=== PATIENT | female | born 1975 | race Caucasian/White ===

== ENCOUNTER 2019-10-15 11:30 | Outpatient (RCR) | payer OTHER, SELFPAY ==
--- NOTE | 2019-08-01 15:07 | OTOPEVAL ---
OT INITIAL EVALUATION REPORT 08/01/19 Thank you for referring this patient to [facility]. Skilled OT indicated 1x/week for 4 weeks. Will re-assess in 4 weeks and send a progress report at that time. Please review, sign, date and return this plan of care YOSELYN. I agree with and certify that the following plan of care is medically necessary. Referring Physician Date Attending Provider: Sonido Gregory MD *OT Outpatient Evaluation Document 08/01/19 13:43 LIBORIO (Rec: 08/01/19 15:07 LIBORIO [email or web address]) Therapy Assessment Status Assessment Status Evaluation Evaluation Information Problem Diagnosis L thumb UCL rupture Onset Aug 2018 Additional Evaluation Detail Patient underwent UCL repair in December 2018. Subjective Information Pt reports having a cortizone Query Text:As Reported By Patient/ shot May 2019 with no relief Family of her pain. Her biggest complaint is the constant pain and stiffness despite completing her ROM exercises regularly. Reports difficulties with gripping and pinching to pull pants up, holding a water bottle, holding weights at the gym, and almost everything I try to do . Prior Level of Function Activity Level (Last 3 Months) Hand Dominance Right Pain Assessment Timing of Pain Assessment Timing of Pain Assessment Assessment Pain Scale Pain Scale Used Numeric (1 - 10) Self Report Pain Assessment Left Thumb(s) Reported Pain Level 4 Pain Description Aching Pain Frequency Continuous Current Pain Intensity 4 Lowest Pain Intensity 4 Greatest Pain Intensity 7 Pain Aggravating Factors ADL's,Exercise/Activity, Lifting Pain Relief Interventions Used By Exercise,Medication Patient Pain Score Pain Score 4: Self Report Upper Extremity Range of Motion Thumb Range of Motion Left Thumb MCP Flexion - Active 30 Thumb IP Flexion - Active 50 Opposition to 5th Digit Base 1 Thumb Range of Motion Comments Thumb gross extension is WNL. Splint/Brace/Cast Assessment Splint and Bracing Assessment Left Thumb Fabrication Clinician Made Splint/Brace/Cast Comments Static progressive thumb IP flexion Reason For Splint/Brace/Cast Increase Range of Motion Schedule Comments Begin 10 min wear time, 3x/day. To incre
--- NOTE | 2019-08-11 13:26 | PCOTNOTE ---
Patient called and cancelled OT tx today.
--- NOTE | 2019-09-10 14:34 | OTOPEVAL ---
OCCUPATIONAL THERAPY RE-EVALUATION AND PROGRESS REPORT 09/10/2019 Thank you for referring this patient to [facility]. As noted below, continued skilled OT is indicated 1x/week for 4 weeks. Please review, sign, date and return this plan of care YOSELYN. I agree with and certify that the following plan of care is medically necessary. Referring Physician Date Attending Provider: Sonido Gregory MD *OT Outpatient Re-Evaluation Assessment Status Re-evaluation Evaluation Information Problem Diagnosis L thumb pain s/p UCL rupture and repair Onset Aug 2018 Additional Evaluation Detail Cesilia has been participating in outpatient hand therapy for left thumb IP stiffness and pain. Therapy has been focusing on pain management through the use of modalities and static progressive splinting for IP ROM. Subjective Information Pt reports improvement since Query Text:As Reported By Patient/ SOC. She states she has less Family pain, improved ROM, and decreased feelings of stiffness. Functionally this has improved her ability to hold a dumbbell, pinching and pulling up her pants, and improved skein bleacher to open a jar. Pain Assessment Timing of Pain Assessment Timing of Pain Assessment Re-assessment Pain Scale Pain Scale Used Numeric (1 - 10) Self Report Pain Assessment Left Thumb(s) Reported Pain Level 2 Pain Description Aching Pain Frequency Continuous Current Pain Intensity 2 Lowest Pain Intensity 2 Greatest Pain Intensity 4 Additional Pain Comments Continuous pain reduced from 4/10 to 2/10. Pain Score Pain Score 2: Self Report Upper Extremity Range of Motion Thumb Range of Motion Left Thumb MCP Flexion - Active 35 Thumb IP Flexion - Active 53 Opposition to 5th Digit Base 1 cm Thumb Range of Motion Comments MCP improved from 30*. IP improved from 50*. Hand Complaint Clerk/Pinch Strength Assessment Hand Left Complaint Clerk Strength (lbs) 49.33 Lateral Pinch Strength (lbs) 6.66 Palmar Pinch Strength (lbs) 2 Hand Complaint Clerk/Pinch Strength Comments Increase in pain (4/10) with palmar pinching. Right Complaint Clerk Strength (lbs) 61 Lateral Pinch Strength (lbs) 8.33 Palmar Pinch Strength (lbs) 12 Splint/Brace/Cast Assessment
--- NOTE | 2019-10-09 13:41 | PCOTNOTE ---
Patient did not show or call to cancel OT re-evaluation today. Left patient a message stating that tomorrow would be our last day to get her in her a re-eval per her POC.
--- NOTE | 2019-10-15 12:49 | OTOPEVAL ---
OT RE-EVALUATION AND D/C NOTE 10/15/2019 Thank you for referring this patient to [facility]. As described below, Cesilia has made progress toward functional use and reduced pain in the left thumb. She is currently independent with all home programs and static progressive splint schedule. D/C today. Please review, sign, date and return this discharge YOSELYN. I agree with and certify that the following plan of care is medically necessary. Referring Physician Date Referring Provider: Sonido Gregory MD *OT Outpatient Evaluation Start: 08/01/19 13:43 Therapy Assessment Status Assessment Status Assessment Status Re-evaluation Evaluation Information Problem Diagnosis L thumb pain s/p UCL rupture and repair Onset Aug 2018 Additional Evaluation Detail Cesilia has been participating in outpatient hand therapy for left thumb IP stiffness and pain. Therapy has been focusing on pain management through the use of modalities and static progressive splinting for IP ROM. Subjective Information Pt reports improvement since Query Text:As Reported By Patient/ SOC. She states she has less Family pain, improved ROM, and decreased feelings of stiffness. Functionally this has improved her ability to hold a dumbbell, pinching and pulling up her pants, and improved client resolution specialist to open a jar. Overall she has more comfort and confidence in her ability to use the left hand now and is able to incorporate the left hand and thumb into everyday activities vs. compensating and avoiding use due to pain. Pain Assessment Timing of Pain Assessment Timing of Pain Assessment Re-assessment Pain Scale Pain Scale Used Numeric (1 - 10) Self Report Pain Assessment Left Thumb(s) Reported Pain Level 2 Pain Description Aching Current Pain Intensity 2 Lowest Pain Intensity 2 Greatest Pain Intensity 6 Pain Score Pain Score 2: Self Report Upper Extremity Range of Motion Thumb Range of Motion Left Thumb MCP Flexion - Active 32 Thumb IP Flexion - Active 55 Opposition to 5th Digit Base 1 Thumb Range of Motion Comments MCP improved from 30*.
== END 2019-10-15 14:14 | disposition home or self-care (01) ==
LOC: ANHOT 11:30
PROVIDERS: PCP Internal Medicine
DX: S53.32XD Traumatic rupture of left ulnar collateral ligament, subsequent encounter (principal)
CPT/HCPCS: 97018; 97035; 97110; 97140; 97165; L3913

== ENCOUNTER → 2020-04-28 13:48 | Outpatient (CLI) | payer OTHER, SELFPAY ==
--- NOTE | ~2020-04-28 | MM_ITS ---
EXAMINATION: MM screening maida BI w sheila HISTORY: Screening mammogram TECHNIQUE: Craniocaudal and mediolateral oblique 3-D tomosynthesis images were obtained and synthetic 2-D images were generated. CAD analysis was submitted and interpreted. COMPARISON: 04/02/2019, 03/11/2018, 03/09/2017 bilateral digital screening mammogram examinations BREAST PARENCHYMAL COMPOSITION: There are scattered areas of fibroglandular density. FINDINGS: There is no evidence of suspicious mass, calcification, or architectural distortion to sugg est malignancy in either breast. There has been no suspicious interval change. IMPRESSION: 1. No mammographic evidence of malignancy. 2. Recommend routine screening mammography in one year. BI-RADS Category 1: Negative Reviewed, dictated and finalized at location A.
== END ==
PROVIDERS: PCP Internal Medicine; Visit Provider Obstetrics & Gynecology
DX: Z12.31 Encounter for screening mammogram for malignant neoplasm of breast (principal)
CPT/HCPCS: 77063; 77067

== ENCOUNTER → 2021-05-19 11:15 | Outpatient (CLI) | payer OTHER, SELFPAY ==
--- NOTE | ~2021-05-19 | MM_ITS ---
EXAMINATION: MM screening [facility] BI w sheila HISTORY: Screening mammogram TECHNIQUE: Craniocaudal and mediolateral oblique 3-D tomosynthesis images were obtained and synthetic 2-D images were generated. CAD analysis was submitted and interpreted. COMPARISON: 04/28/2020, 04/02/2019, 03/11/2018 BREAST PARENCHYMAL COMPOSITION: There are scattered areas of fibroglandular density. FINDINGS: There is no evidence of suspicious mass, calcification, or architectural distortion to sugg est malignancy in either breast. There has been no suspicious interval change. IMPRESSION: 1. No mammographic evidence of malignancy. 2. Recommend routine screening mammography in one year. BI-RADS Category 1: Negative Reviewed, dictated and finalized at location A.
== END ==
PROVIDERS: Visit Provider Nurse Practitioner Obstetrics & Gynecology
DX: Z12.31 Encounter for screening mammogram for malignant neoplasm of breast (principal)
CPT/HCPCS: 77063; 77067

== ENCOUNTER 2022-02-21 00:03 | Day surgery (SDC) | payer OTHER, SELFPAY ==
[2022-02-07 13:14] VITALS: BMI 21.9
--- NOTE | 2022-02-21 07:26 | WPDANESEPPF ---
Anes - Initial Pre Proc Eval Procedure: Operation Date: 02/21/22 09:30 Proposed Procedures p Screening Colonoscopy - Mert Morales MD Date/Time: 02/21/22 07:26 Surgeon: Mert Morales MD Pre Op Diagnosis: neoplasm screening Patient Data Age: 46 Gender: F Height: 1.57 m Weight: 54.5 kg Allergies Allergy/AdvReac Type Severity Reaction Status Date / Time No Known Allergies Allergy Verified 02/21/22 08:12 Home Medications Medication Instructions Recorded Confirmed Type sodium sul 1.479 gram-potas ch See Rx Instructions PO PER PKG DIR 01/02/22 02/07/22 Rx 0.188 gram-magnes sul 0.225 gram #24 tabs tablet (Sutab) amlodipine 5 mg tablet 5 mg PO DAILY 02/07/22 02/07/22 History lisinopril 10 mg tablet 10 mg PO DAILY 02/07/22 02/07/22 History medroxyprogesterone 2.5 mg tablet 2.5 mg PO DAILY 02/07/22 02/07/22 History valacyclovir 500 mg tablet 500 mg PO DAILY 02/07/22 02/07/22 History Patient hx anesthesia problems: none Family hx anesthesia problems: none Results Review: All pre-operative results and documents have been reviewed as part of the pre-operative evaluation. [facility] Past Medical History Medical History (Updated 02/21/22 @ 07:27 by Edouard Pena MD) Endometriosis HTN (hypertension) Migraine PUD (peptic ulcer disease) Family History Family History Other Family history of malignant neoplasm Social History Social History Smoking status: Never smoker Alcohol intake: never Substance use: never Substance use type: does not use Living arrangements: with family Gender identity (if verbalized by the patient): Female Spiritual care concerns: No Anes - Eval Final PreProcedure Day of Procedure 02/21/22 07:26 Patient weight: normal Heart: regular rate and rhythm Lungs: clear to auscultation and normal air movement Airway: Mallampati scale class II Neurological: alert and oriented Last oral intake: >/= 8 hours ASA classification: II Emergent: no Anesthetic plan: proceed Anesthesia type and monitoring: general GIVS Results Review: All pre-operative results and documents have been reviewed as part of the pre-operative evaluation. Informed Consent: The patient's anesthetic plan and its attendant risks and benefits were discussed with the patient/family/POA. Questions were solicited and answers provided to the satisfaction of the patient/family/POA.
[2022-02-21 08:13] VITALS: BP 142/83; PULSE 82; RESP 16; TEMP 37.2; O2SAT 100
[2022-02-21] MEDS: LACTATED RINGERS 1,000 ML 150 ML IV CONT (08:24)
--- NOTE | 2022-02-21 08:54 | PM.IMHP ---
H&P: HPI History of Present Illness Date/Time: 02/21/22 08:54 Chief Complaint: Neoplasia screening. Narrative: This is a 46-year-old white female patient presents for neoplasia screening colonoscopy. Patient reports that her current weight appetite bowel movements are normal. She denies abdominal pain. She has had no bleeding. Family history is significant her father had colon cancer. Patient presents today for neoplasia screening. Review of Systems Review of Systems: Review of systems noncontributory. [facility] Past Medical History Medical History (Updated 02/21/22 @ 09:07 by Mert Morales MD) Endometriosis HTN (hypertension) Migraine PUD (peptic ulcer disease) Family History Family History Other Family history of malignant neoplasm Social History Social History Smoking status: Never smoker Alcohol intake: never Substance use: never Substance use type: does not use Living arrangements: with family Gender identity (if verbalized by the patient): Female Spiritual care concerns: No Meds Home Medications and Allergies Home Medications Medication Instructions Recorded Confirmed Type sodium sul 1.479 gram-potas ch See Rx Instructions PO PER PKG DIR 01/02/22 02/07/22 Rx 0.188 gram-magnes sul 0.225 gram #24 tabs tablet (Sutab) amlodipine 5 mg tablet 5 mg PO DAILY 02/07/22 02/07/22 History lisinopril 10 mg tablet 10 mg PO DAILY 02/07/22 02/07/22 History medroxyprogesterone 2.5 mg tablet 2.5 mg PO DAILY 02/07/22 02/07/22 History valacyclovir 500 mg tablet 500 mg PO DAILY 02/07/22 02/07/22 History Allergies Allergy/AdvReac Type Severity Reaction Status Date / Time No Known Allergies Allergy Verified 02/21/22 08:12 Vital Signs Vital Signs - 24 hr 02/21/22 08:13 Temperature 98.9 F Pulse Rate 82 Respiratory Rate 16 Blood Pressure 142/83 H Pulse Oximetry 100 Oxygen Delivery Room Air Exam Narrative: Physical exam reveals patient to be alert. Vital signs stable. HEENT exam is unremarkable. Patient is anicteric. Lungs are clear to auscultation and percussion. Heart is without murmur or extra sounds. Abdominal exam bowel sounds are present soft nontender with no organomegaly. Digital external rectal exam is normal. Assessment and Plan Assessment and plan (1) Family history of colon cancer in father: Code(s): Z80.0 - Family history of malignant neoplasm of digestive organs Status: Acute Assessment and Plan: Patient has a family history of colon cancer in both father and grandparent. Plan is for surveillance colonoscopy now and consider this at 5 year intervals in the future.
[2022-02-21 09:19] VITALS: BP 142/81; PULSE 100; RESP 25; O2SAT 100
[2022-02-21 09:29] VITALS: BP 127/72; PULSE 83; RESP 20; O2SAT 100
[2022-02-21 09:39] VITALS: BP 134/81; PULSE 79; RESP 19; O2SAT 100
== END 2022-02-21 09:49 | disposition home or self-care (01) ==
PROVIDERS: PCP Internal Medicine; Referring Provider Nurse Practitioner Obstetrics & Gynecology; Visit Provider Internal Medicine Gastroenterology
PROC: 0DJD8ZZ Inspection of Lower Intestinal Tract, Via Natural or Artificial Opening Endoscopic (ICD-10-PCS; CPT 45378; principal; 2022-02-21 09:30)
DX: Z12.11 Encounter for screening for malignant neoplasm of colon (principal); K57.30 Diverticulosis of large intestine without perforation or abscess without bleeding; K64.8 Other hemorrhoids; I10 Essential (primary) hypertension; Z80.0 Family history of malignant neoplasm of digestive organs
CPT/HCPCS: 45378; J2704; J7120

== ENCOUNTER → 2022-08-22 12:35 | Outpatient (CLI) | payer OTHER, SELFPAY ==
--- NOTE | ~2022-08-22 | MM_ITS ---
EXAMINATION: MM screening maida BI w sheila HISTORY: Screening mammogram TECHNIQUE: Craniocaudal and mediolateral oblique 3-D tomosynthesis images were obtained and synthetic 2-D images were generated. CAD analysis was submitted and interpreted. COMPARISON: 05/19/2021, 04/28/2020, 04/02/2019 bilateral screening mammogram examinations BREAST PARENCHYMAL COMPOSITION: There are scattered areas of fibroglandular density. FINDINGS: There is no evidence of suspicious mass, calcification, or architectural distortion to sugg est malignancy in either breast. There has been no suspicious interval change. IMPRESSION: 1. No mammographic evidence of malignancy. 2. Recommend routine screening mammography in one year. BI-RADS Category 1: Negative Reviewed, dictated and finalized at location A. ING WORKER
== END ==
PROVIDERS: PCP Nurse Practitioner Obstetrics & Gynecology; Visit Provider Nurse Practitioner Obstetrics & Gynecology
DX: Z12.31 Encounter for screening mammogram for malignant neoplasm of breast (principal)
CPT/HCPCS: 77063; 77067

== ENCOUNTER 2022-11-02 12:10 | Observation (INO) | payer OTHER, SELFPAY ==
--- NOTE | ~2022-11-02 | US_ITS ---
US abdomen limited DATE: 11/02/2022 15:24 INDICATION: Acute cholecystitis due to gallstones TECHNIQUE: Real-time imaging of liver, pancreas, gallbladder COMPARISON: None FINDINGS: There are multiple stones in the dependent aspect of the gallbladder. Gallbladder wall asia ures up to 3 mm thickness. Positive sonographic Garcia's sign. No hepatic or pancreatic space-occupying mass lesion is evident. Normal hepatopedal portal venous luann w direction. The common bile duct measures 4.7 mm, within normal limits. IMPRESSION: Cholelithiasis Mild gallbladder wall thickening and positive sonographic Garcia sign, suggesting acute cholecystitis Reviewed, dictated and finalized at Location A. Reviewed, dictated and finalized at location A. IMPRESSION: Cholelithiasis Mild gallbladder wall thickening and positive sonographic Garcia sign, suggesti ng acute cholecystitis
[2022-11-02 11:57] VITALS: BP 142/74; PULSE 78; RESP 16; TEMP 36.2; O2SAT 97
--- NOTE | 2022-11-02 12:04 | PM.IMHP ---
H&P: HPI History of Present Illness Date/Time: 11/02/22 12:04 Chief Complaint: Acute cholecystitis secondary to cholelithiasis Narrative: Ms. Grimaldo presents to the office today with her for evaluation.? They were recently vacationing in [place], [place] when she developed severed RUQ abdominal pain that radiated to her back as well as nausea.? Pain began after eating fried food.? She presented to a ER in [place]? where a CT abd/pel with IV contrast was done and showed cholelithiasis including a gallstone within the neck of the gallbladder.? No pericholecystic inflammation or fluid to suggest acute cholecystitis.? Surgery was recommended to be done while she was there, but patient deferred and wished to come home to be evaluated discuss surgery. ? Was told she should directly to ER once she returns, but wanted to try to wait until her appt today. Drove through the night and returned home at 2:30am today.? Was very uncomfortable during the entire 15-hour drive.? Subjectively felt like she had a fever.? She was given script for oxycodone while in the ER which she has been taking oxycodone with only some relief pain.? Still experiences persistent RUQ discomfort and nausea and feels like she's going to pass out.? Denies dark urine and is trying to drink plenty of fluids, but still feels weak and dizzy. ing after eating fried and spicy foods.? Over the last few months, admits to experiencing some nausea, diarrhea, and bloating. acute cholecsyt due to gallstones - floor bed without telemetry.? 23-hours obs. PFSH Medical History?(Updated 11/02/22 @ 11:24 by Claudia Benitez) Endometriosis HTN (hypertension) Migraine PUD (peptic ulcer disease) Rupture of ulnar collateral ligament of left thumb Rupture of ulnar collateral ligament of left thumb Sprain of anterior talofibular ligament of left ankle Surgical History?(Updated 11/02/22 @ 10:36 by Adele Santos) Hx of thumb surgery Family History? Other Carcinoma of colon Diabetes mellitus Family history of malignant neoplasm Hypertension Social History? Smoking status:? Never smoker Alcohol intake:? never Substance use:? never Substance use type:? does not use Lack of Transportation:? No Lack of Food:? Never True Current Housing:? I Have Housing Concerned About Future Housing:? No Difficulty Paying Gas/Electric Bills:? No Difficulty Paying for Meds:? No Currently Unemployed:? No Difficulty w/ Childcare or Family Care:? No Living arrangements:? with family Occupation/Education:? occupation Gender identity (if verbalized by the patient):? Female Sexual Orientation (if Verbalized by the Patient):? Straight or Heterosexual Spiritual care concerns:? No Intake Vital Signs ? 11/02/2309:39 Height 1.57 m Height (Inches) 62 Weight 59.874 kg Weight (Lbs) 132 lbs., 0 oz. BMI 24.1 BP 122/84 Blood Pressure Location Rt brachial Position Sitting Respiration 14 Pulse 79 Pulse Source Monitor Temp 36.4 C Temp Source Tympanic Visit Reasons:?Gallbladder problems Allergies/Adverse Reactions propranolol Adverse Reaction (Unknown, Verified 11/02/22 10:35) Fatiguedamoviq Adverse Reaction (Unknown, Uncoded 11/02/22 10:35) Headache Preferred laboratory: [facility] Pre-Planning preparation?: Yes Review of Systems Const All systems reviewed & are unremarkable except as noted in HPI and below Reports fatigue, Reports headache(s) and Reports weight gain Eyes Reports no additional complaints, Denies loss of peripheral vision and Denies loss of vision ENT Reports dizziness and Reports headache(s) Card Denies syncope, Denies irregular heart rhythm, Denies claudication, Denies lightheadedness, Denies palpitations, Denies dyspnea and Denies dyspnea on exertion Resp Denies pain with cough, Denies dyspnea, Denies dyspnea on exertion and Denies wheezing GI Reports abdominal pain, R
[2022-11-02] MEDS: DEXTROSE 5%/0.9% SOD CHL 1,000 ML 130 ML IV CONT ×2 (12:42→22:03)
[2022-11-02] MEDS: ONDANSETRON INJ 4 MG/2 ML VIAL IV PUSH ×2 (12:43→14:51)
--- NOTE | 2022-11-02 12:52 | ADMGEN ---
This patient, Cesilia Grimaldo, was admitted to [facility] Room 306-01. Patient/family oriented to hospital policies and general routines including ID bracelet, bed and alarms, visiting hours, pain management, procedures, bathroom and other care routines, personal items, smoking policy, room service/diet, and visiting hours. Information on how to activate the Rapid Response Team has been discussed. Patient/Family are encouraged to report perceived risks to care and to ask questions if they do not understand what they are told or what they should do.
[2022-11-02 13:00] LABS: Basophils Absolute Auto 0.1 K/mm3 (0.0-0.1); Basophils Percent Auto 0.7 % (0.2-1.2); Eosinophils Absolute Auto 0.1 K/mm3 (0-0.3); Eosinophils Percent Auto 1.2 % (0-4.4); Hematocrit 40.2 % (37.0-47.0); Hemoglobin 13.1 g/dL (12.0-15.0); Immature Granulocyte Absolute 0.02 K/mm3 (0.00-0.031); Immature Granulocyte Percent A 0.2 % (0-0.5); Lymphocytes Absolute Auto 1.74 K/mm3 (0.9-3.2); Lymphocytes Percent Auto 19.2 % (18.3-44.2); Mean Corpuscular HGB Conc 32.6 g/dl (32-36); Mean Corpuscular Hemoglobin 30.1 pg (26-34); Mean Corpuscular Volume 92.4 fl (80-100); Mean Platelet Volume 9.7 fl (7.4-10.4); Monocytes Absolute Auto 0.5 K/mm3 (0.1-0.6); Monocytes Percent Auto 5.8 % (2.6-8.5); Neutrophils Absolute Auto 6.6 K/mm3 (1.3-6.7); Neutrophils Percent Auto 72.9 % (45.5-73.1); Platelet Count Result 231 k/mm3 (150-375); Red Blood Count 4.35 M/mm3 (4.2-5.4); Red Cell Distribution Width 12.7 % (11.5-14.5); White Blood Count 9.1 K/mm3 (4.5-10.0)
[2022-11-02 13:37] LABS: Alanine Aminotransferase 48 U/L (6-35); Albumin Level 4.1 g/dL (3.5-5.1); Alkaline Phosphatase 97 U/L (38-126); Anion Gap 0 mmol/L (8-16); Aspartate Amino Transferase 33 U/L (14-36); Bilirubin,Total 0.5 mg/dL (0.2-1.3); Blood Urea Nitrogen 11 mg/dL (7-17); Calcium 8.4 mg/dL (8.4-10.2); Carbon Dioxide 29 mmol/L (22-30); Chloride 108 mmol/L (98-107); Estimated Glomerular Filt Rate > 60; Glucose 98 mg/dL (65-110); Lipase 104 U/L (23-300); Potassium 4.1 mmol/L (3.4-5.0); Sodium 137 mmol/L (137-145)
[2022-11-02] MEDS: MORPHINE SULFATE (*CRX) 2 MG/ML INJ 4 MG IV PUSH (14:19)
[2022-11-02] MEDS: PANTOPRAZOLE SODIUM IV 40 MG VIAL IV PUSH (14:19)
[2022-11-02 15:46] VITALS: BMI 23.8
[2022-11-02] MEDS: PROMETHAZINE HCL 25 MG/ML AMPUL 12.5 MG IV PUSH (16:56)
[2022-11-02] MEDS: PIPERACILLN/TAZ 3.375GM/NS50ML 3.375 GM/50 ML BAG IVPB ×2 (17:58→22:03)
[2022-11-02 23:28] VITALS: BP 131/78; PULSE 77; RESP 18; TEMP 36.8; O2SAT 98
[2022-11-03] VITALS (9 sets, daily range): BP systolic 114–158; BP diastolic 60–90; PULSE 67–89; RESP 16–26; TEMP 36.1–37.2; O2SAT 93–100
[2022-11-03] MEDS: PIPERACILLN/TAZ 3.375GM/NS50ML 3.375 GM/50 ML BAG IVPB ×2 (05:08→10:05)
[2022-11-03] MEDS: DEXTROSE 5%/0.9% SOD CHL 1,000 ML 130 ML IV CONT (05:09)
[2022-11-03 07:41] LABS: Basophils Percent Auto 0.7 % (0.2-1.2); Eosinophils Absolute Auto 0.2 K/mm3 (0-0.3); Eosinophils Percent Auto 3.1 % (0-4.4); Hematocrit 35.8 % (37.0-47.0); Hemoglobin 11.5 g/dL (12.0-15.0); Immature Granulocyte Absolute 0.01 K/mm3 (0.00-0.031); Immature Granulocyte Percent A 0.2 % (0-0.5); Lymphocytes Absolute Auto 1.61 K/mm3 (0.9-3.2); Lymphocytes Percent Auto 29.4 % (18.3-44.2); Mean Corpuscular HGB Conc 32.1 g/dl (32-36); Mean Corpuscular Hemoglobin 30.3 pg (26-34); Mean Corpuscular Volume 94.2 fl (80-100); Mean Platelet Volume 9.7 fl (7.4-10.4); Monocytes Absolute Auto 0.5 K/mm3 (0.1-0.6); Monocytes Percent Auto 8.4 % (2.6-8.5); Neutrophils Absolute Auto 3.2 K/mm3 (1.3-6.7); Neutrophils Percent Auto 58.2 % (45.5-73.1); Platelet Count Result 191 k/mm3 (150-375); Red Cell Distribution Width 12.8 % (11.5-14.5); White Blood Count 5.5 K/mm3 (4.5-10.0)
[2022-11-03 07:57] LABS: Alanine Aminotransferase 65 U/L (6-35); Albumin Level 3.4 g/dL (3.5-5.1); Alkaline Phosphatase 81 U/L (38-126); Anion Gap 3 mmol/L (8-16); Aspartate Amino Transferase 52 U/L (14-36); Bilirubin,Total 0.7 mg/dL (0.2-1.3); Blood Urea Nitrogen 9 mg/dL (7-17); Carbon Dioxide 25 mmol/L (22-30); Chloride 110 mmol/L (98-107); Estimated CRCL calculation 66 ml/min; Estimated Glomerular Filt Rate > 60; Glucose 107 mg/dL (65-110); Sodium 138 mmol/L (137-145)
--- NOTE | 2022-11-03 08:43 | WPDANESEPPF ---
Anes - Initial Pre Proc Eval Procedure: Operation Date: 11/03/22 10:30 Proposed Procedures p Laparoscopic Cholecystectomy, Possible Open - Gustavo Gomez MD Date/Time: 11/03/22 08:43 Surgeon: Gustavo Gomez MD Pre Op Diagnosis: acute cholecystitis Patient Data Age: 47 Gender: F Height: 1.57 m Weight: 59 kg Last Vital Signs Temp 36.1 C L 11/03/22 06:10 Pulse 67 11/03/22 06:10 Resp 16 11/03/22 06:10 BP 123/72 11/03/22 06:10 Pulse Ox 97 11/03/22 06:10 O2 Del Method Room Air 11/02/22 20:00 Allergies Allergy/AdvReac Type Severity Reaction Status Date / Time propranolol AdvReac Unknown Fatigued Verified 11/02/22 12:54 amoviq AdvReac Unknown Headache Uncoded 11/02/22 10:35 Home Medications Medication Instructions Recorded Confirmed Type amlodipine 5 mg tablet 5 mg PO DAILY #90 tabs 09/14/22 11/02/22 Rx lisinopril 10 mg tablet 10 mg PO DAILY #90 tabs 09/14/22 11/02/22 Rx valacyclovir 500 mg tablet 500 mg PO DAILY #90 tabs 09/14/22 11/02/22 Rx amoxicillin 875 mg tablet 875 mg PO Q12H #20 tabs 10/25/22 11/02/22 Rx oxycodone-acetaminophen 5 mg-325 1 tablet PO Q4H PRN Pain 11/02/22 11/02/22 History mg tablet (Percocet) Laboratory Tests 11/02/22 11/02/22 11/02/22 12:53 12:53 12:53 WBC 9.1 K/mm3 K/mm3 (4.5-10.0) RBC 4.35 M/mm3 M/mm3 (4.2-5.4) Hgb 13.1 g/dL g/dL (12.0-15.0) Hct 40.2 % % (37.0-47.0) MCV 92.4 fl fl (80-100) MCH 30.1 pg pg (26-34) MCHC 32.6 g/dl g/dl (32-36) RDW 12.7 % % (11.5-14.5) Plt Count 231 k/mm3 k/mm3 (150-375) MPV 9.7 fl fl (7.4-10.4) Immature Gran % (Auto) 0.2 % % (0-0.5) Neut % (Auto) 72.9 % % (45.5-73.1) Lymph % (Auto) 19.2 % % (18.3-44.2) [place] % (Auto) 5.8 % % (2.6-8.5) Eos % (Auto) 1.2 % % (0-4.4) Baso % (Auto) 0.7 % % (0.2-1.2) Lymph # (Auto) 1.74 K/mm3 K/mm3 (0.9-3.2) [place] # (Auto) 0.5 K/mm3 K/mm3 (0.1-0.6) Eos # (Auto) 0.1 K/mm3 K/mm3 (0-0.3) Baso # (Auto) 0.1 K/mm3 K/mm3 (0.0-0.1) Abs Immat Gran (auto) 0.02 K/mm3 K/mm3 (0.00-0.031) Absolute Neuts (auto) 6.6 K/mm3 K/mm3 (1.3-6.7) Absolute Nucleated RBC 0.0 K/mm3 K/mm3 (0.0-0.012) Nucleated RBC % 0.0 % % (0.0-0.2) Sodium 137 mmol/L mmol/L (137-145) Potassium 4.1 mmol/L mmol/L (3.4-5.0) Chloride 108 mmol/L H mmol/L (98-107) Carbon Dioxide 29 mmol/L mmol/L (22-30) Anion Gap 0 mmol/L L mmol/L (8-16) BUN 11 mg/dL mg/dL (7-17) Creatinine 0.60 mg/dL L mg/dL (0.7-1.0) Estim Creat Clear Calc Not Reportable Estimated GFR > 60 (59 - ) Glucose 98 mg/dL mg/dL (65-110) Calcium 8.4 mg/dL mg/dL (8.4-10.2) Total Bilirubin 0.5 mg/dL mg/dL (0.2-1.3) AST 33 U/L U/L (14-36) ALT 48 U/L H U/L (6-35) Alkaline Phosphatase 97 U/L U/L (38-126) Total Protein 7.0 g/dL g/dL (6.3-8.2) Albumin 4.1 g/dL g/dL (3.5-5.1) Lipase 104 U/L U/L Cancelled (23-300) 11/03/22 11/03/22 07:31 07:31 WBC 5.5 K/mm3 K/mm3 (4.5-10.0) RBC 3.80 M/mm3 L M/mm3 (4.2-5.4) Hgb 11.5 g/dL L g/dL (12.0-15.0) Hct 35.8 % L % (37.0-47.0) MCV 94.2 fl fl (80-100) MCH 30.3 pg pg (26-34) MCHC 32.1 g/dl g/dl (32-36) RDW 12.8 % % (11.5-14.5) Plt Count 191 k/mm3 k/mm3 (150-375) MPV 9.7 fl fl (7.4-10.4) Immature Gran % (Auto) 0.2 % % (0-0.5) Neut % (Auto) 58.2 % % (45.5-73.1) Lymph % (Auto) 29.4 % % (18.3-44.2) [place] % (Auto) 8.4 % % (2.6-8.5) Eos % (Auto) 3.1 % % (0-4.4) Baso % (Auto) 0.7 % % (0.2-1.2) Lymph # (Auto) 1.61 K/mm3 K
[2022-11-03] MEDS: PANTOPRAZOLE SODIUM IV 40 MG VIAL IV PUSH (09:01)
[2022-11-03] MEDS: LACTATED RINGERS 1,000 ML 30 ML IV CONT ×2 (09:32→11:13)
--- NOTE | 2022-11-03 09:57 | WPDHPUPDATE1 ---
History and Physical Update Update Date/Time: 11/03/22 09:57 History and Physical has been reviewed, including an updated exam of the patient. There are NO changes in the patient's condition. Risks, benefits, and alternatives have been discussed and questions answered. Patient agrees to proceed with procedure.
[2022-11-03] MEDS: KETOROLAC 30 MG/ML VIAL (*BKC) IV PUSH (10:49)
[2022-11-03] MEDS: LIDO 1%/EPINEPHRINE 1:100,000 50 ML VIAL 20 ML INFILTRATE (10:56)
[2022-11-03] MEDS: BUPivacaine HCL 0.5% PF 30 ML VIAL 20 ML INFILTRATE (10:56)
--- NOTE | 2022-11-03 11:16 | W.PM.PROC2 ---
Procedure Note - Detailed Date of Procedure 11/03/22 Pre-op Diagnosis Acute cholecystitis due to cholelithiasis Post-op Diagnosis Same Procedure Performed Laparoscopic cholecystectomy. Surgeon Gustavo Gomez MD Patient Access Manager Pamela Phipps [facility] Anesthesia General Indications Patient presented with right upper quadrant abdominal pain associated nausea vomiting and radiation of the pain to her back. White blood cell count was normal and liver enzymes were normal. Abdominal ultrasound showed multiple gallstones with a gallstone in the neck of the gallbladder. She appears she had mild acute cholecystitis and cholelithiasis. She presents now for laparoscopic cholecystectomy. Findings Mild gallbladder wall edema acute inflammatory changes. Gallstone impacted within the neck of the gallbladder. No gangrene of the gallbladder or perforation. Description of Procedure After informed consent was obtained the patient was brought to the operating room where she was placed in supine position and general endotracheal anesthesia was administered. The abdomen was then prepped and draped in usual sterile fashion. A time-out was then performed correctly identifying the patient as well as the procedure to be performed. She was already on scheduled IV antibiotics. I made a small periumbilical incision with a scalpel then spread the subcutaneous tissues with a hemostat. Then with traction upwards on the anterior abdominal wall a Veress needle was placed into the abdomen without difficulty. I then insufflated to adequate pneumoperitoneum of 15mmHg of CO2. I then placed a 5mm Optiview port in the periumbilical trocar port site. Once inside the abdomen I then placed additional trocar ports to include a 10mm epigastric trocar port and 2 right lateral subcostal 5mm trocar ports. The gallbladder was distended and mildly edematous. There were no adhesions of the omentum duodenum or stomach to the gallbladder wall. There appeared to be a gallstone impacted within the neck of the gallbladder. With a laparoscopic grasper held the dome of the gallbladder and elevate the gallbladder over the right half of the liver towards the right shoulder. A 2nd grasper was then used to hold infundibular gallbladder and I proceeded to down the visceral peritoneum off of the infundibulum the gallbladder and to identify the cystic duct. The cystic duct was then dissected out circumferentially. The cystic artery was identified dissected out circumferentially as well. The posterior wall the gallbladder at the infundibulum dissected free of the liver into the critical view was obtained. At this point I then placed 2 clips proximally on the cystic duct and 2 clips distally high on the infundibulum of the gallbladder. I then divided the cystic duct with Endo Priscilla. In a similar fashion I then clipped and divided the cystic artery. The gallbladder was then resected off the liver utilizing the cautery. At 1 point towards the dome of the gallbladder I enter the gallbladder with electrocautery and there was some spillage of bile which was not purulent. No gallstones were spilled. Once the gallbladder was completely off of the liver is placed into an Endo-Catch bag and brought out through the epigastric port site. The gallbladder and contents were sent to pathology for examination. I then aspirated the bile in the right upper 5 the abdomen. Irrigated out the right upper quadrant of the abdomen with about 2L of sterile saline solution. I then inspected the gallbladder fossa and there was no bleeding and no evidence of bile leak. I then aspirated the fluid from the pelvis and from the right upper quadrant. I then removed all the trocar ports under direct visualization all port sites appeared hemostatic. I then allowed the abdomen decompress. I then irrigated all the ports in sterile saline solution hemostasis was good. Epigastric 10mm trocar port fascial defect was closed utilizing [address]
[2022-11-03] MEDS: fentaNYL CITRATE INJ (*CRX) 100 MCG/2 ML VIAL 25 MCG IV PUSH ×2 (11:53→11:56)
[2022-11-03] MEDS: ONDANSETRON INJ 4 MG/2 ML VIAL IV PUSH ×2 (12:11→15:07)
[2022-11-03] MEDS: MORPHINE SULFATE (*CRX) 2 MG/ML INJ 4 MG IV PUSH (13:17)
[2022-11-03] MEDS: valACYclovir HCL 500 MG TABLET PO (13:21)
[2022-11-03] MEDS: amLODIPine BESYLATE 5 MG TABLET PO (13:21)
[2022-11-03] MEDS: lisinopriL 10 MG TABLET PO (13:21)
[2022-11-03] MEDS: oxyCODONE HCL (*CRX) 5 MG TAB IR PO (14:39)
[2022-11-03] MEDS: IBUPROFEN 600 MG TABLET PO (16:26)
--- NOTE | 2022-11-03 17:23 | PM.DS ---
DS: Admitting Diagnosis Discharge Date 11/03/22 Admitting Diagnosis Acute cholecystitis secondary to cholelithiasis DS: Discharge Diagnosis Discharge Diagnosis (1) Acute cholecystitis due to biliary calculus: Code(s): K80.00 - Calculus of gallbladder with acute cholecystitis without obstruction Status: Acute DS: Summary Hospital Course Reason for hospitalization: Acute cholecystitis Hospital Course: The patient was initially seen office where she appeared to be an well and was having severe right upper quadrant abdominal pain associated with nausea. She is sensing was directly admitted to the surgical floor from my office. When she was on the floor was started on IV fluids and Zosyn for IV antibiotics. We kept her NPO and gave her appropriate IV pain medicines and IV antiemetics. Cbc and CMP were performed showing normal white blood cell count and normal liver enzymes. A abdominal ultrasound was performed showing mild gallbladder wall thickening with a gallbladder wall measuring 3mm and a normal common bile duct of 5mm. Multiple gallstones were seen with a gallstone lodged within the neck of the gallbladder. I discussed surgery with her and she wants proceed with a laparoscopic cholecystectomy. She was made NPO and then the next morning she was taken to the operating room she underwent uncomplicated laparoscopic cholecystectomy. Postoperatively she went to the recovery room where she was recovered appropriately then transferred back to her room on the surgical floor. She was then started on full liquids and advance to a low-fat diet without difficulty. She did not choose to using narcotic pain medications and only shows to used in for pain her incisions were healing appropriately for the day of surgery without any bleeding or drainage. She was discharged home on the evening of the day of surgery in improved condition. Status at Discharge Functional status at discharge: independent ambulation Overall status at discharge: patient is back to baseline Time Spent with Patient Time attestation: Total time spent providing and/or coordinating discharge services: Time spent: Less than 30 minutes Specific discharge activities: No lifting more than 10 to 15 lb for 2 weeks. May shower but do not soak the incision under water for 2 weeks. Exam GI: Other: The abdomen is soft and nondistended. Appropriate mild tenderness was noted around the port sites. Port sites were dressed with skin glue and the areas were dry without any bleeding. DS: Data Data Completed and Pending Pending studies at discharge: Pending at discharge 11/03/22 10:45 Surgical [PTH] Routine Labs on day of discharge: Labs from last 24 hours 11/03/22 11/03/22 11/03/22 07:31 07:31 07:31 WBC 5.5 RBC 3.80 L Hgb 11.5 L Hct 35.8 L MCV 94.2 MCH 30.3 MCHC 32.1 RDW 12.8 Plt Count 191 MPV 9.7 Immature Gran % (Auto) 0.2 Neut % (Auto) 58.2 Lymph % (Auto) 29.4 [place] % (Auto) 8.4 Eos % (Auto) 3.1 Baso % (Auto) 0.7 Lymph # (Auto) 1.61 [place] # (Auto) 0.5 Eos # (Auto) 0.2 Baso # (Auto) 0.0 Abs Immat Gran (auto) 0.01 Absolute Neuts (auto) 3.2 Absolute Nucleated RBC 0.0 Nucleated RBC % 0.0 Sodium 138 Potassium 4.0 Chloride 110 H Carbon Dioxide 25 Anion Gap 3 L BUN 9 Creatinine 0.70 Estim Creat Clear Calc 66 Estimated GFR > 60 Glucose 107 Calcium 8.0 L Total Bilirubin 0.7 AST 52 H ALT 65 H Alkaline Phosphatase 81 Total Protein 6.0 L Albumin 3.4 L Blood Type A Positive Antibody Screen Negative Discharge Plan Discharge Attending physician on discharge: Gustavo Gomez Discharging Clinician: Gustavo Gomez Patient Disposition: Home, Self-Care Activity: other - see discharge instructions Diet: as tolerated Discharge Instructions: May discharge home when stable. Follow up with Dr. Gomez in
== END 2022-11-03 16:30 | disposition home or self-care (01) ==
PROVIDERS: Admitting Provider Surgery; PCP Physician Assistant Medical; Visit Provider Surgery
PROC: 0FT44ZZ Resection of Gallbladder, Percutaneous Endoscopic Approach (ICD-10-PCS; CPT 47562; principal; 2022-11-03 10:30)
DX: K80.10 Calculus of gallbladder with chronic cholecystitis without obstruction (principal); I10 Essential (primary) hypertension; G43.909 Migraine, unspecified, not intractable, without status migrainosus; Z79.899 Other long term (current) drug therapy
CPT/HCPCS: 47562; 36415; 76705; 80053; 83690; 85025; 86850; 86900; 86901; 88304; 88342; A9270; C1713; C9113; G0378; J0131; J1100; J1885; J1940; J2250; J2270; J2405; J2543; J2550; J2704; J2710; J3010; J7042; J7120

== ENCOUNTER 2023-02-28 10:30 | Outpatient (RCR) | payer OTHER, SELFPAY ==
--- NOTE | 2022-12-05 15:12 | PTOPEVAL1 ---
Assessment and note entered by Bree Francis, PT Evaluation Information Assessment Status Evaluation Diagnosis unspec. abdominal pain Therapy diagnosis Low back pain Subjective Information Left sided back pain, on and off a couple years. Used to come and go but now is always there. Tried UTI, kidney, and gall bladder focus with provider, cont to have back pain X-ray shows arthritis Reported Pain Level Pain Score 4: Self Report Assessment PT Clinical Summary Pt presents w/ c/o chronic left sided back pain which has progressed to being constant in nature. X-ray shows scoliosis and mild arthritis, evaluation shows multiple areas of increased muscle tone, adhesions, and tenderness with pelvic alignment deficit and possible leg length discrepancy. Likely instability of lumbopelvic complex as well. Pt will benefit from physical therapy to address deficits, improve muscle activation and strength, and reduce pain. Plan of Care Interventions Electrical Stimulation,Hot Pack/Cold Pack,Manual Therapy,Neuro Re-education,Patient/Caregiver Educati,Therapeutic Activities,Therapeutic Exercise,Ultrasound PT Services Indicated Yes Treatment Frequency and 2x weekly x 6 weeks Duration These treatments will address the objective and functional deficits as defined above. The patient will be advanced safely and appropriately in order for the patient to progress towards his/her prior level of function. Additional exercises will be introduced and as well as a comprehensive home exercise program upon discharge, if needed, ?to ensure carryover of functional gains achieved in the clinic. This treatment plan has been reviewed and agreement upon by the patient.
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
--- NOTE | 2023-01-15 16:35 | PTOPPROG ---
Assessment and note entered by Bree Francis, PT Evaluation Information Assessment Status Evaluation Diagnosis unspec. abdominal pain, back pain Subjective Information Reports is so much better then on the weekend I ruin it . Reports does a lot of lifting and yard work over the weekends. Notes the pain after doing this activities lessens faster and she does her exercises to help with this. Reports 60% improvement overall Assessment PT Clinical Summary Pt has been attending therapy consistently when able to her low back pain. She had a large gap in therapy for 3 weeks due to precautions after outpatient surgical procedure. Since her return she has continued consistently with ther therapy. She reports feeling 60% improved overall. States she'll feel really good during the week but then with her incresaed activity over the weekend her pain flares up. She reports at this point when she does her stretches and rests, the pain resolves faster than it did previously. She cont to demo significant quadratus lumborum adhesions and tone, and pelvic alignment deficits that correct with muscle energy techniques as well as decreased functional strength overall. Pt has been educated today on monitoring her postures to assess continued pelvic alignment deficits. Pt will benefit from continued therapy to continue improvement and her ability to perofrm high level activities with decreased discomfort. Plan of Care Interventions Electrical Stimulation,Hot Pack/Cold Pack,Manual Therapy,Neuro Re-education,Patient/Caregiver Educati,Therapeutic Activities,Therapeutic Exercise,Ultrasound PT Services Indicated Yes Treatment Frequency and 1-2x weekly x 4 weeks Duration These treatments will address the objective and functional deficits as defined above. The patient will be advanced safely and appropriately in order for the patient to progress towards his/her prior level of function. Additional exercises will be introduced and as well as a comprehensive home exercise program upon discharge, if needed, ?to ensure carryover of functional gains achieved in the clinic. This treatment plan has been reviewed and agreement upon by the patient.
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
== END 2023-03-05 10:01 | disposition still patient (30) ==
LOC: ANHHIPT 10:30
PROVIDERS: PCP Physician Assistant Medical; Visit Provider Physician Assistant Medical
DX: R10.9 Unspecified abdominal pain (principal)
CPT/HCPCS: 97014; 97110; 97112; 97140; 97162; G0283

== ENCOUNTER 2023-03-08 08:00 | Outpatient (RCR) | payer OTHER, SELFPAY ==
--- NOTE | 2023-03-08 15:26 | PTOPDC ---
Assessment and note entered by Bere Francis, PT Assessment Status Discharge Diagnosis unspec. abdominal pain, back pain Subjective Information Pt reports feeling greater than 95% improved overall Reports she doesn't remember the last time she had pain States has been very busy and is using the knowledge from therapy to lift correctly Reported Pain Level Pain Score 0: Self Report Assessment PT Clinical Summary Pt has attended therapy consistently for back pain . Today she reports feeling greater than 95% improved overall, reports doesn't remember the last time she had pain, and has met all goals save one which she has progressed significantly. She has been educated on lift techniques, findings, and continuation of activities. Thus she is being discharged from therapy plan of care for meeting her goals.
== END 2023-03-09 10:58 | disposition home or self-care (01) ==
LOC: ANHHIPT 08:00
PROVIDERS: PCP Physician Assistant Medical; Visit Provider Physician Assistant Medical
DX: R10.9 Unspecified abdominal pain (principal)
CPT/HCPCS: 97110; 97140

== ENCOUNTER → 2023-04-19 15:14 | Outpatient (CLI) | payer OTHER, SELFPAY ==
--- NOTE | ~2023-04-19 | MR_ITS ---
EXAMINATION: MR elbow RT wo con DATE: 04/19/2023 15:56 INDICATION: 6 weeks of lateral right elbow pain TECHNIQUE: Magnetic resonance imaging (MRI) of the right elbow was performed without intravenous cont rast. Sequences included coronal, axial, and sagittal PD-weighted FS FSE and coronal, axial, and sagi ttal PD-weighted FSE. COMPARISON: Radiographs dated 04/02/2023 FINDINGS: Osseous/other: Normal alignment. Normal marrow signal with no marrow edema, fracture, osteochondral lesion or abnor mal marrow replacing process. Tendons: Triceps, biceps brachii and brachialis tendons are normal. Mild tendinopathy at the proximal common flexor tendon wad. There is a small focus of fluid signal intensity measuring approximately one-2 mm craniocaudally and 5 mm AP along the medial epicondylar insertion of the common extensor tendon wad c onsistent with small partial-thickness tear. There is a minimal amount of likely reactive edema in th e subcutaneous fat along the posterior margin of the insertion. There is minimal subcutaneous edema o verlying the lateral epicondylar insertion of the common extensor tendon wad which appears otherwise normal. Ligaments: The medial and lateral collateral ligament complexes are normal. Cubital tunnel: There is a normal variant anconeus epitrochlear small cell extending across the roof the cubital tunn el. Cubital tunnel is otherwise unremarkable with small amount of fat surrounding the ulnar nerve whi ch remains normal in signal and caliber. Fluid: Physiologic amount of fluid the elbow joint. IMPRESSION: 1. Minimal subcutaneous edema overlying the lateral epicondylar origin of the common extensor tendon wad which appears normal with no tendinopathy or tear. 2. Mild tendinopathy and very small partial-thickness tear at the medial epicondylar origin of the co mmon flexor tendon wad. Reviewed, dictated and finalized at location A. IMPRESSION: 1. Minimal subcutaneous edema overlying the lateral epicondylar origin of the c ommon extensor tendon wad which appears normal with no tendinopathy or tear. 2. Mild tendinopathy and very small partial-thickness tear at the medial epicon dylar origin of the common flexor tendon wad.
== END ==
PROVIDERS: PCP Nurse Practitioner Family; Visit Provider Nurse Practitioner Family
DX: M25.521 Pain in right elbow (principal)
CPT/HCPCS: 73221

== ENCOUNTER 2023-07-02 13:30 | Outpatient (RCR) | payer OTHER, SELFPAY ==
--- NOTE | 2023-05-01 10:32 | OTOPEVAL1 ---
Assessment and note entered by Uvaldo Faria, OTR/Annie, CHT Evaluation Information Assessment Status Evaluation Diagnosis (R) lateral epicondylitis Subjective Information Patient is right handed. Reports she started mowing her lawn this spring using a zero-turn mower. She noticed increase in severe pain since February. She has been having difficulties sleeping due to the pain. She presents today in a wrist immobilizer which she has been wearing since 04/26. She received a steroid injection that day to the lateral epicondyle. She reports experiencing shooting pains into her hand, but these have stopped since she's been immobilizing and taking gabapentin. Reported Pain Level Pain Score 6: Self Report Additional Pain Score Comments Patient reports intermittent sharp shooting pains that start in the elbow and radiate into her right hand. These pains are 10/10 and she reports they are infrequent and go away after a minute or two. Assessment OT Clinical Summary Patient referred to outpatient OT with dx of right lateral epicondylitis, which has been getting progressively worse since the summer. She presents today with functional limitations with being able to use the arm for any sort of gripping or lifting due to the pain. Skilled OT indicated for HEP instruction and progression, therapeutic exercise and activities, manual therapy, and use of modalities to reduce pain and improve functional use of the right UE. Plan of Care Interventions Therapeutic Exercise,Manual Therapy,Therapeutic Activities,Hot Pack/Cold Pack,Check Out for Orthotic/Pr,Ultrasound,Paraffin OT Services Indicated Yes Treatment Frequency and 1-2x/week for 5 weeks Duration These treatments will address the objective and functional deficits as defined above. The patient will be advanced safely and appropriately in order for the patient to progress towards his/her prior level of function. Additional exercises will be introduced and as well as a comprehensive home exercise program upon discharge, if needed, ?to ensure carryover of functional gains achieved in the clinic. This treatment plan has been reviewed and agreement upon by the patient.
--- NOTE | 2023-05-01 10:33 | OPREHPOC ---
Outpatient Therapy Plan of Care This is a Multidisciplinary Plan of Care that may contain components documented by all disciplines (PT, OT, and ST.) OT Problem 1 OT Problem #1 Knowledge Deficit OT Goal 1 Goal 1. Patient to be independent with instructed materials. Target Visit 6 OT Problem 2 OT Problem #2 Pain OT Goal 1 Goal 1. Patient to report reduced pain at worst to 4/ 10 or less. Target Visit 6
--- NOTE | 2023-06-05 09:38 | OTOPPROG ---
Assessment and note entered by Uvaldo Faria, BILLY/Annie, CHT Progress Update 06/05/23 Diagnosis (R) lateral epicondylitis Subjective Information Patient reports she notices progress in the elbow, noting less pain. She is not waking up as much in the middle of the night. No longer having the shooting pain into the hand. Continues to have difficulties when straining the flexors/extensors, such as when lifting a coffee cup. Patient was recently on vacation for a week, so not doing housework and was actually able to rest her arm, she reports much lower pain after this. Assessment OT Clinical Summary Patient referred to outpatient OT with dx of right lateral epicondylitis. She has participated in 6 OT sessions focused on treating pain, reducing inflammation, and restoring functional flexibility . She is experiencing less pain and is now able to move through normal ROM with low amounts of pain. She continues to have difficulties with any sort of lifting or stress to the flexors and extensors of the wrist/fingers. Continued skilled OT indicated for HEP instruction and progression, therapeutic exercise and activities, manual therapy, and use of modalities to reduce pain and improve functional use of the right UE. Plan of Care Interventions Therapeutic Exercise,Manual Therapy,Therapeutic Activities,Hot Pack/Cold Pack,Check Out for Orthotic/Pr,Ultrasound,Paraffin OT Services Indicated Yes Treatment Frequency and 1-2x/week for 3 weeks Duration These treatments will address the objective and functional deficits as defined above. The patient will be advanced safely and appropriately in order for the patient to progress towards his/her prior level of function. Additional exercises will be introduced and as well as a comprehensive home exercise program upon discharge, if needed, ?to ensure carryover of functional gains achieved in the clinic. This treatment plan has been reviewed and agreement upon by the patient.
--- NOTE | 2023-07-02 15:29 | OTOPDC ---
Assessment and note entered by BILLY Michelle/Annie, CHT Discharge Notification 07/02/23 Diagnosis (R) lateral epicondylitis Subjective Information Patient reports she notices progress in the elbow, noting less pain and improved functional use. She reports having 1/10 pain at all times. This reduced from 5/10 pain at rest. She has progressed being able to poultry picker coffee cups and decorate her home for [place] without any difficulties. She tends to still favor the left hand. She has been completing stretching and strengthening HEP without increased pain. Reported Pain Level Pain Score 1: Self Report Assessment OT Clinical Summary Patient referred to outpatient OT with dx of right lateral epicondylitis. She has participated in 10 OT sessions focused on treating pain, reducing inflammation, restoring flexibility, and progressing to resistive training. She is able to complete light strengthening of the wrist flexors/ extensors as well as frit mixer strengthening without pain. She is currently independent with all materials and verbalizes excellent understanding of HEP. Plan to have patient continue to complete HEP to progressively strengthen and continue to use heat/ice, massage, and stretching for pain control. Plan of Care OT Services Indicated No
== END 2023-07-02 16:39 | disposition home or self-care (01) ==
LOC: ANHOT 13:30
PROVIDERS: PCP Nurse Practitioner Family; Visit Provider Plastic Surgery
DX: M77.11 Lateral epicondylitis, right elbow (principal)
CPT/HCPCS: 97018; 97035; 97110; 97140; 97165

== ENCOUNTER → 2023-10-01 12:10 | Outpatient (CLI) | payer OTHER, SELFPAY ==
--- NOTE | ~2023-10-01 | MM_ITS ---
EXAMINATION: MM screening maida BI w sheila HISTORY: Screening TECHNIQUE: Craniocaudal and mediolateral oblique 3-D tomosynthesis images were obtained and synthetic 2-D images were generated. CAD analysis was submitted and interpreted. COMPARISON: Comparison to multiple prior studies sequentially, with oldest reviewed study dated 03/09. BREAST PARENCHYMAL COMPOSITION: Not dense: There are scattered areas of fibroglandular density. FINDINGS: There is a focal asymmetry superiorly in the right breast on MLO view. The left breast is s table without evidence for malignancy. IMPRESSION: 1. Focal right breast asymmetry. 2. Additional mammographic views and possible breast ultrasound are recommended. BI-RADS Category 0: Incomplete: Needs additional imaging evaluation. Reviewed, dictated and finalized at location A. ES 1 THRU 5 TEACHER IMPRESSION: 1. Focal right breast asymmetry. 2. Additional mammographic views and possible breast ultrasound are recommended . BI-RADS Category 0: Incomplete: Needs additional imaging evaluation.
== END ==
PROVIDERS: PCP Nurse Practitioner Obstetrics & Gynecology; Visit Provider Nurse Practitioner Obstetrics & Gynecology
DX: Z12.31 Encounter for screening mammogram for malignant neoplasm of breast (principal); N64.89 Other specified disorders of breast
CPT/HCPCS: 77063; 77067

== ENCOUNTER 2023-10-31 09:23 | Outpatient (CLI) | payer OTHER, SELFPAY ==
--- NOTE | ~2023-10-31 | MMUS_ITS ---
EXAMINATION: MM diagnostic maida RT w sheila, US breast RT limited HISTORY: Follow-up right breast asymmetry TECHNIQUE: Additional 3-D tomosynthesis images of the right breast were performed and synthetic 2-D i mages were generated. CAD analysis was submitted and interpreted. High resolution Limited right breas t ultrasound was performed. COMPARISON: Comparison to multiple prior studies sequentially, with oldest reviewed study dated 03/11. BREAST PARENCHYMAL COMPOSITION: Not dense: There are scattered areas of fibroglandular density. FINDINGS: MAMMOGRAPHIC FINDINGS: Focal asymmetry is persistent in the superior aspect of the right breast on spot MLO and mediolateral views, although not confirmed on spot CC views or ultrasound. ULTRASOUND: Limited right breast ultrasound: Normal heterogeneous echotexture in the upper half of the right [address] without discrete solid or cystic mass. IMPRESSION: 1. Probable benign focal asymmetry superiorly in the right breast without correlation on cc views or ultrasound. 2. Recommend 6 month follow-up diagnostic right mammogram BI-RADS category 3, probably benign findings. Reviewed, dictated and finalized at location [facility]. IMPRESSION: 1. Probable benign focal asymmetry superiorly in the right breast without corre lation on cc views or ultrasound. 2. Recommend 6 month follow-up diagnostic right mammogram BI-RADS category 3, probably benign findings.
== END 2023-10-31 09:24 ==
LOC: MICIMG 09:24
PROVIDERS: PCP Nurse Practitioner Obstetrics & Gynecology; Visit Provider Nurse Practitioner Obstetrics & Gynecology
DX: R92.8 Other abnormal and inconclusive findings on diagnostic imaging of breast (principal)
CPT/HCPCS: 76642; 77061; 77065; G0279